=== PATIENT | female | born 1965 | race Caucasian/White ===

== ENCOUNTER 2021-02-24 13:18 | Outpatient (REF) | payer BC, SELFPAY ==
[2021-02-24 16:52] LABS: Calcium 9.7 mg/dL (8.4-10.2)
[2021-02-24 17:19] LABS: Free T4 (Free Thyroxine) 0.96 ng/dL (0.71-1.85); Thyroid Stimulating Hormone 1.09 uIU/mL (0.32-4.0)
[2021-02-25 11:52] LABS: Calcium (PTHI) 9.8 mg/dL (8.6-10.4); PTHI 49 pg/mL (14-64)
== END 2021-02-24 13:19 | disposition home or self-care (01) ==
LOC: HO.HMGCLDS 13:18
PROVIDERS: PCP Family Medicine; Visit Provider Family Medicine
DX: R00.0 Tachycardia, unspecified (principal); Z86.39 Personal history of other endocrine, nutritional and metabolic disease
CPT/HCPCS: 36415; 82310; 83970; 84439; 84443

== ENCOUNTER 2022-05-14 12:09 | Outpatient (REF) | payer BC, SELFPAY ==
--- NOTE | ~2022-05-14 | XR_ITS ---
EXAMINATION: XR CHEST CLINICAL INFORMATION: Preemployment study. History of +PPD. COMPARISON: 09/13/2018 chest radiographs. TECHNIQUE: 2 views of the chest were obtained. FINDINGS: A small nodular densities again seen overlying the left upper lobe without significant change. Mild biapical pleural thickening and scarring is seen. The lungs are otherwise clear. There are no pleural effusions. The heart and mediastinal structures are unremarkable. XR/XR chest 2V IMPRESSION: Chronic changes without significant change compared to the 2018 study. No acute cardiopulmonary process.
== END 2022-05-14 12:10 | disposition home or self-care (01) ==
LOC: HO.XRAY 12:09
PROVIDERS: Visit Provider Family Medicine
DX: Z02.1 Encounter for pre-employment examination (principal); R76.11 Nonspecific reaction to tuberculin skin test without active tuberculosis
CPT/HCPCS: 71046

== ENCOUNTER 2022-07-06 06:36 | Outpatient (REF) | payer BC, SELFPAY ==
[2022-07-06 08:32] LABS: Cholesterol 254 mg/dL; Glucose Fasting 92 mg/dL (60-99); HDL Cholesterol 56 mg/dL; LDL Cholesterol Calculated 181 mg/dl; Triglycerides 87 mg/dL
== END 2022-07-06 06:37 | disposition home or self-care (01) ==
LOC: HO.LAB 06:36
PROVIDERS: PCP Family Medicine; Visit Provider Family Medicine
DX: E78.00 Pure hypercholesterolemia, unspecified (principal); E11.9 Type 2 diabetes mellitus without complications
CPT/HCPCS: 36415; 80061; 82947

== ENCOUNTER 2023-01-21 13:33 | Outpatient (REF) | payer BC, SELFPAY ==
[2023-01-21 14:42] LABS: Alanine Aminotransferase 15 U/L (0-31); Anion Gap 12 (12-20); Aspartate Amino Transferase 22 U/L (5-31); Blood Urea Nitrogen 17 mg/dL (9-16); Carbon Dioxide 29 mmol/L (22-29); Chloride 108 mmol/L (96-108); Estimated Glomerular Filt Rate > 60; Potassium 4.9 mmol/L (3.3-5.1); Sodium 144 mmol/L (135-145)
== END 2023-01-21 13:34 | disposition home or self-care (01) ==
LOC: HO.10HDL 13:33
PROVIDERS: Visit Provider Family Medicine
DX: E78.00 Pure hypercholesterolemia, unspecified (principal); Z79.899 Other long term (current) drug therapy
CPT/HCPCS: 36415; 80051; 82550; 82565; 84450; 84460; 84520

== ENCOUNTER 2023-05-28 13:28 | Outpatient (REF) | payer OTHER, SELFPAY ==
--- NOTE | ~2023-05-28 | CT_ITS ---
EXAMINATION: CT CHEST SCREENING CLINICAL INFORMATION: Current smoker. 39 pack year history. COMPARISON: Previous chest CT September 2018 and chest x-ray April 2022 TECHNIQUE: Multidetector volumetric CT imaging of the chest is performed without contrast using low dose technique. Additional 2D coronal and sagittal reformatted images and axial 3D maximum intensity projection (MIP) images are generated on the CT workstation. This CT examination was performed using dose optimization techniques as appropriate, variously including the following: *Automated exposure control *Adjustment of mA and/or kV according to patient size (this includes techniques or standardized protocols for targeted exams where dose is matched to indication/reason for exam; i.e. extremities or head) *Use of iterative reconstruction technique DLP: 44 mGy-cm FINDINGS: LUNGS: Mild emphysema. Biapical pleural and parenchymal scarring. Deeper bilateral upper lobe nodules, for example measuring 6 mm in the right upper lobe axial image 81 series 5, 6 x 7 mm in the right upper lobe axial image 92 series 5 and 6 mm in the left upper lobe axial image 96 series 5, are stable. Irregularly-shaped left upper lobe nodule measured 6 x 11 mm axial image 169 series 5 is stable. Scarring or subsegmental atelectasis at the lung bases. Question early peripheral interstitial disease at the left anterior lung base. MEDIASTINUM: The mediastinum is normal. CORONARY ARTERY CALCIFICATION: None visualized on this study. PLEURA: There is no pleural effusion. No pleural mass or thickening. AXILLA: No lymphadenopathy. UPPER ABDOMEN: Unremarkable OSSEOUS STRUCTURES: Degenerative changes of the spine. CT/CT lung screening IMPRESSION: Emphysema. Biapical pleural and parenchymal scarring and deeper bilateral upper lobe nodules are stable. 6 x 11 mm left upper lobe is nodule is stable. ASSESSMENT: Lung-RADS category 2: Benign RECOMMENDATION: Annual low-dose chest CT follow-up recommended
== END 2023-05-28 13:29 | disposition home or self-care (01) ==
LOC: HO.CT 13:28
PROVIDERS: PCP Family Medicine; Visit Provider Physician Assistant Medical
DX: Z12.2 Encounter for screening for malignant neoplasm of respiratory organs (principal); F17.210 Nicotine dependence, cigarettes, uncomplicated
CPT/HCPCS: 71271; G0296

== ENCOUNTER 2024-06-01 14:10 | Outpatient (REF) | payer OTHER, SELFPAY ==
--- NOTE | ~2024-06-01 | CT_ITS ---
EXAMINATION: CT LOW-DOSE SCREENING CHEST WITHOUT CONTRAST CLINICAL INFORMATION: Nicotine dependence, cigarettes, uncomplicated. The patient is a current smoker with a 39 pack-year history of smoking. COMPARISON: CT chest 05/28/2023. X-ray chest 05/14/2022. TECHNIQUE: Multidetector volumetric CT imaging of the chest is performed on a Siemens SOMATOM Definition scanner without contrast using low dose technique. Additional 2D coronal and sagittal reformatted images and axial 3D maximum intensity projection (MIP) images are generated on the CT workstation. This CT examination was performed using dose optimization techniques as appropriate, variously including the following: *Automated exposure control *Adjustment of mA and/or kV according to patient size (this includes techniques or standardized protocols for targeted exams where dose is matched to indication/reason for exam; i.e. extremities or head) *Use of iterative reconstruction technique TOTAL EXAM DLP: 41 mGy-cm. CTDIvol: 1.21 mGy. FINDINGS: PULMONARY NODULES: There is stable biapical scarring and single scarring/nodule measured approximately 0.8 cm nodule in the left upper lobe seen on image 176 series 6, and biapical scarring better visualized on image 93 series 6, as well as subpleural thickening seen bilaterally. There are no new nodules Lungs bilaterally symmetrically expanded. No focal lung nodule or mass. No effusion or pneumothorax. Central airways patent. MEDIASTINUM: No mediastinal, hilar or axillary adenopathy or free fluid collection. CORONARY ARTERY CALCIFICATION: None visualized on this study. THYROID GLAND: Unremarkable to the extent seen. CARDIOVASCULAR STRUCTURES: Aortic and heart size normal. No pericardial effusion. CHEST WALL/AXILLA: Unremarkable. UPPER ABDOMEN: Included portions of the solid organs in the upper abdomen unremarkable on noncontrast imaging. OSSEOUS STRUCTURES: No suspicious focal findings. CT/CT lung screening IMPRESSION: No interval change ASSESSMENT: 1. Lung-RADS Category 2: Benign appearance or behavior of nodules. Apical scarring and left upper lobe nodule/scarring 2. Lung-RADS Category S: 0 RECOMMENDATION: Continued annual screening
== END 2024-06-01 14:11 | disposition home or self-care (01) ==
LOC: HO.CT 14:10
PROVIDERS: Visit Provider Physician Assistant Medical
DX: Z12.2 Encounter for screening for malignant neoplasm of respiratory organs (principal); F17.210 Nicotine dependence, cigarettes, uncomplicated
CPT/HCPCS: 71271

== ENCOUNTER 2024-06-08 16:28 | Outpatient (REF) | payer OTHER, SELFPAY ==
--- NOTE | ~2024-06-08 | XR_ITS ---
EXAMINATION: XR HIP, LEFT CLINICAL INFORMATION: Pain of left hip COMPARISON: None available. TECHNIQUE: Two views of the left hip. FINDINGS: The femoral head is well-positioned within the intact acetabulum. There is narrowing of superior joint space, subarticular sclerosis and osteophyte formation of the hip. No evidence of fracture. Soft tissues are unremarkable. XR/XR hip LT min 2V IMPRESSION: Moderate osteoarthritis of the left hip.
== END 2024-06-08 16:29 | disposition home or self-care (01) ==
LOC: HO.XRAY 16:28
PROVIDERS: PCP Family Medicine; Visit Provider Family Medicine
DX: M25.552 Pain in left hip (principal)
CPT/HCPCS: 73502